=== PATIENT | male | born 1975 | race Caucasian/White ===

== ENCOUNTER 2021-01-20 06:39 | Emergency (ER) | payer BC, SELFPAY ==
[2021-01-20] MEDS ORDERED: ONDANSETRON 4 MG/2 ML VIAL ONE (07:54)
[2021-01-20] MEDS ORDERED: MORPHINE 4 MG/ML SYR ONE (07:54)
[2021-01-20] MEDS ORDERED: KETOROLAC 30 MG/ML INJ ONE (07:54)
[2021-01-20] MEDS ORDERED: NA CHLORIDE 0.9% 1,000 ML ONE (07:54)
[2021-01-20 08:09] LABS: Basophils % 0.9 % (0-1.3); Hematocrit 44.5 % (39.6-49.0); Lymphocytes % 28.7 % (15.3-44.8); RBC Red Blood Cell Count 4.72 M/uL (4.33-5.43)
[2021-01-20 08:14] LABS: Albumin 3.8 g/dL (3.4-5.0); Bilirubin Direct 0.2 mg/dL (0-0.2); Bilirubin Total 0.7 mg/dL (0.2-1.0); Potassium 3.8 mmol/L (3.5-5.1); Protein, Total 6.8 g/dL (6.4-8.2)
--- NOTE | 2021-01-20 08:19 | RAD REPORT ---
EXAM DESCRIPTION: CT - Stone Protocol - 01/20/2021 7:52 am CLINICAL HISTORY: Abdominal pain. COMPARISON: None. TECHNIQUE: Computed axial tomography of the abdomen pelvis was obtained without oral or IV contrast. Lack of IV and oral contrast limits evaluation of solid organs, bowel, and vessels. Coronal reformat juan images were obtained and reviewed. All CT scans are performed using dose optimization technique as appropriate and may include automated exposure control or mA/KV adjustment according to patient size. FINDINGS: Small bilateral renal calculi. No hydronephrosis. A ureteral calculus is not seen. No blad westley calculus. A 1 millimeter calculus within the bladder. The liver, spleen, pancreas and adrenals appear grossly normal There is no evidence of diverticulitis. Small to moderate left inguinal hernia. Small right inguinal hernia IMPRESSION: Small nonobstructing bilateral renal calculi
--- NOTE | 2021-01-20 08:37 | ER ---
Nurse's Notes [facility] Name: Paco Tolentino Age: 45 yrs Sex: Male : 1975 Arrival Date: 01/20/2021 Time: 06:40 Bed 13 Private MD: Diagnosis: Hydronephrosis with renal and ureteral calculous obstruction Presentation: 01/20 07:00 Chief complaint: Patient states: I got up around 6am to have a BM and started having jb4 sudden sharp pain to my right groin. It radiates to my back and is 10/10. Coronavirus screen: Client denies travel out of the [place] in the last 14 days. At this time, the client does not indicate any symptoms associated with coronavirus-19. Ebola Screen: Patient negative for fever greater than or equal to 101.5 degrees Fahrenheit, and additional compatible Ebola Virus Disease symptoms No symptoms or risks identified at this time. Initial Sepsis Screen: Does the patient meet any 2 criteria? No. Patient's initial sepsis screen is negative. Does the patient have a suspected source of infection? No. Patient's initial sepsis screen is negative. Risk Assessment: Do you want to hurt yourself or someone else? Patient reports no desire to harm self or others. Onset of symptoms was January 20, 2021. 07:00 Method Of Arrival: Wheelchair jb4 07:00 Acuity: OBI 2 jb4 Historical: - Allergies: 07:02 No Known Allergies; jb4 - Home Meds: 07:02 None [Active]; jb4 - PMHx: 07:02 None; jb4 - PSHx: 07:02 None; jb4 - Immunization history:: Adult Immunizations up to date. - Social history:: Smoking status: Patient denies any tobacco usage or history of. Patient/guardian denies using alcohol, street drugs. - Family history:: not pertinent. Screenin:22 Abuse screen: Denies threats or abuse. Denies injuries from another. Nutritional dm14 screening: No deficits noted. Tuberculosis screening: No symptoms or risk factors identified. Fall Risk None identified. Assessment: 07:07 Pain: Complains of pain in right femoral area Pain radiates to low back area, left low dm14 back and right low back Pain currently is 10 out of 10 on a pain scale. Quality of pain is described as sharp, stabbing, Pain began 1 hour ago. Is continuous. 08:05 Reassessment: Pt states pain is gone. Returned from CT. IV bolus infusing. dm14 08:11 Neuro: No deficits noted. Cardiovascular: No deficits noted. Respiratory: grunting dm14 resps with the pain, rapid. GI: Abd is soft and non tender X 4 quads. : No deficits noted. 09:30 General: Appears distressed, uncomfortable, slender, Behavior is cooperative, restless, dm14 Reports. 09:30 Reassessment: Pt remains pain free. Urine spec obtained and sent. dm14 Vital Signs: 07:00 BP 98 / 57; Pulse 51; Resp 16; Pulse Ox 100% on R/A; Weight 77.11 kg (R); Height 5 ft. jb4 6 in. (167.64 cm); Pain 10/10; 07:07 BP 97 / 78; Pulse 73; Pulse Ox 100% ; Pain 10/10; dm14 08:05 BP 86 / 59; Pulse 55; Resp 12; Temp 98; Pulse Ox 100% ; dm14 09:30 BP 96 / 63; Pulse 77; Resp 16; Pulse Ox 100% ; Pain 0/10; dm14 07:00 Body Mass Index 27.44 (77.11 kg, 167.64 cm) jb4 ED Course: 06:40 Patient arrived in ED. cl3 07:02 Triage completed. jb4 07:02 Arm band placed on right wrist. jb4 07:17 Nicki Khoury, BENJAMIN is Primary Nurse. ss 07:25 Hemant Grigsby MD is Attending Physician. chelo 07:33 Inserted saline lock: 22 gauge in left antecubital area, using aseptic technique. Blood ss collected. 07:52 CT Stone Protocol In Process Unspecified. EDMS 08:22 Patient has correct armband on for positive identification. Bed in low position. Call dm14 light in reach. Side rails up X2. 08:22 No provider procedures requiring assistance completed. Inserted saline lock: in left. dm14 08:36 Herman Saxena MD is Referral Physician. chelo 09:30 IV discontinued, intact, bleeding controlled, No redness/swelling at site. Pressure dm14 dressing applied. 09:47 Urine Dipstick--Ancillary (enter results) Sent. dm14 09:47 Urine Culture Sent. dm14 Administered Medications: 07:40 Drug: Zofran (Ondansetron) 4 mg Route: IVP; Site: left antecubital; dm14 07:42 Drug: TORadol 30 mg Route: IVP; Site: left antecubital; dm14 07:45 Drug: morphine 4 mg Route: IVP; Site: left antecubital; dm14 07:55 Drug: NS 0.9% 1000 ml Route: IV; Rate: 1 bolus; Site: left antecubital; dm14 Outcome: 08:36 Discharge ordered by . [facility] 09:30 Discharged to home ambulatory. dm14 09:30 Condition: stable 09:30 Discharge instructions given to patient, Instructed on discharge instructions, follow up and referral plans. medication usage, Demonstrated understanding of instructions, follow-up care, medications, Prescriptions given X 4. 09:54 Patient left the ED. dm14 Addendum: 01/23/2021 15:41 Addendum: Culture Results: Positive urine culture. No further action required. Bacteria s s sensitive to prescribed antibiotic. Signatures: Dispatcher [employer] EDMS Hemant Grigsby MD MD cha Smirch, Shelby, BENJAMIN ALEXANDER ss Sandeep Garrett RN RN ward4 Huan Rico3 Tami Phillips RN RN dm14 Corrections: (The following items were deleted from the chart) 01/20 08:17 08:11 Pain: Complains of pain in right femoral area Pain radiates to low back area, dm14 left low back and right low back Pain currently is 10 out of 10 on a pain scale. Quality of pain is described as sharp, stabbing, Pain began 1 hour ago. Is continuous, dm14 09:50 08:11 General: Appears distressed, uncomfortable, slender, Behavior is cooperative, dm14 restless, Reports dm14
--- NOTE | 2021-01-20 08:37 | EDPHYS ---
Physician Documentation [facility] Name: Paco Tolentino Age: 45 yrs Sex: Male : 1975 Arrival Date: 01/20/2021 Time: 06:40 Bed 13 Private MD: ANETA Physician Hemant Grigsby HPI: 01/20 08:08 This 45 yrs old Male presents to ER via Wheelchair with complaints of Pain chelo With Urination. 08:08 This 45 yrs old Male presents to ER via Wheelchair with complaints of Pain chelo With Urination. 08:08 The patient presents with abdominal pain right lower quadrant. Onset: The chelo symptoms/episode began/occurred just prior to arrival. The patient complains of pain in the right mid back and right low back. The pain radiates to the right mid back and right low back. Onset: The symptoms/episode began/occurred just prior to arrival. Modifying factors: The symptoms are alleviated by nothing. the symptoms are aggravated by nothing. Associated signs and symptoms: The patient has no apparent associated signs or symptoms. The symptoms do not radiate. Modifying factors: The symptoms are alleviated by nothing, the symptoms are aggravated by nothing. Historical: - Allergies: 07:02 No Known Allergies; jb4 - Home Meds: 07:02 None [Active]; jb4 - PMHx: 07:02 None; jb4 - PSHx: 07:02 None; jb4 - Immunization history:: Adult Immunizations up to date. - Social history:: Smoking status: Patient denies any tobacco usage or history of. Patient/guardian denies using alcohol, street drugs. - Family history:: not pertinent. ROS: 08:08 Constitutional: Negative for fever, chills, and weight loss, Eyes: Negative for injury, chelo pain, redness, and discharge, ENT: Negative for injury, pain, and discharge, Neck: Negative for injury, pain, and swelling, Cardiovascular: Negative for chest pain, palpitations, and edema, Respiratory: Negative for shortness of breath, cough, wheezing, and pleuritic chest pain, Back: Negative for injury and pain, : Negative for injury, bleeding, discharge, and swelling, MS/Extremity: Negative for injury and deformity, Skin: Negative for injury, rash, and discoloration, Neuro: Negative for headache, weakness, numbness, tingling, and seizure, Psych: Negative for depression, anxiety, suicide ideation, homicidal ideation, and hallucinations, Allergy/Immunology: Negative for hives, rash, and allergies, Endocrine: Negative for neck swelling, polydipsia, polyuria, polyphagia, and marked weight changes, Hematologic/Lymphatic: Negative for swollen nodes, abnormal bleeding, and unusual bruising. 08:08 Abdomen/GI: Positive for abdominal pain, of the anterior aspect of right lateral abdomen, posterior aspect of right lateral abdomen and right lower quadrant. Exam: 08:08 Constitutional: This is a well developed, well nourished patient who is awake, alert, chelo and in no acute distress. Head/Face: Normocephalic, atraumatic. Eyes: Pupils equal round and reactive to light, extra-ocular motions intact. Lids and lashes normal. Conjunctiva and sclera are non-icteric and not injected. Cornea within normal limits. Periorbital areas with no swelling, redness, or edema. ENT: Nares patent. No nasal discharge, no septal abnormalities noted. Tympanic membranes are normal and external auditory canals are clear. Oropharynx with no redness, swelling, or masses, exudates, or evidence of obstruction, uvula midline. Mucous membranes moist. Neck: Trachea midline, no thyromegaly or masses palpated, and no cervical lymphadenopathy. Supple, full range of motion without nuchal rigidity, or vertebral point tenderness. No Meningismus. Chest/axilla: Normal chest wall appearance and motion. Nontender with no deformity. No lesions are appreciated. Cardiovascular: Regular rate and rhythm with a normal S1 and S2. No gallops, murmurs, or rubs. Normal PMI, no JVD. No pulse deficits. Respiratory: Lungs have equal breath sounds bilaterally, clear to auscultation and percussion. No rales, rhonchi or wheezes noted. No increased work of breathing, no retractions or nasal flaring. Male : Normal genitalia with no discharge or lesions. Skin: Warm, dry with normal turgor. Normal color with no rashes, no lesions, and no evidence of cellulitis. MS/ Extremity: Pulses equal, no cyanosis. Neurovascular intact. Full, normal range of motion. Neuro: Awake and alert, GCS 15, oriented to person, place, time, and situation. Cranial nerves II-XII grossly intact. Motor strength 5/5 in all extremities. Sensory grossly intact. Cerebellar exam normal. Normal gait. Psych: Awake, alert, with orientation to person, place and time. Behavior, mood, and affect are within normal limits. 08:08 Abdomen/GI: Inspection: abdomen appears normal, Bowel sounds: normal, Palpation: mild abdominal tenderness, in the right lower quadrant, Liver: no appreciated palpable abnormalities, Hernia: not appreciated. Vital Signs: 07:00 BP 98 / 57; Pulse 51; Resp 16; Pulse Ox 100% on R/A; Weight 77.11 kg (R); Height 5 ft. jb4 6 in. (167.64 cm); Pain 10/10; 07:07 BP 97 / 78; Pulse 73; Pulse Ox 100% ; Pain 10/10; dm14 08:05 BP 86 / 59; Pulse 55; Resp 12; Temp 98; Pulse Ox 100% ; dm14 09:30 BP 96 / 63; Pulse 77; Resp 16; Pulse Ox 100% ; Pain 0/10; dm14 07:00 Body Mass Index 27.44 (77.11 kg, 167.64 cm) jb4 MDM: 07:25 Patient medically screened. [facility] 08:12 Differential diagnosis: nephrolithiasis, bowel obstruction, Cholelithiasis, chelo diverticulitis, non-specific abd pain, pancreatitis, urinary tract infection. Data reviewed: vital signs, nurses notes, lab test result(s), radiologic studies, CT scan. Data interpreted: addiction specialist: rate is 51 beats/min, rhythm is Pulse oximetry: is not applicable for this patient encounter. Counseling: I had a detailed discussion with the patient and/or guardian regarding: the historical points, exam findings, and any diagnostic results supporting the discharge/admit diagnosis, lab results, radiology results. 01/20 07:11 Order name: Basic Metabolic Panel; Complete Time: 08:36 01/20 07:11 Order name: CBC with Diff; Complete Time: 08:36 01/20 07:11 Order name: Hepatic Function; Complete Time: 08:36 ss 01/20 07:11 Order name: Lipase; Complete Time: 08:36 ss 01/20 07:28 Order name: Urine Culture chelo 01/20 09:43 Order name: Urine Dipstick--Ancillary (enter results) bd 01/20 07:11 Order name: IV Saline Lock; Complete Time: 07:38 01/20 07:11 Order name: Labs collected and sent; Complete Time: 07:38 01/20 07:27 Order name: CT Stone Protocol; Complete Time: 08:36 [facility] 01/20 09:44 Order name: Urine Dipstick-Ancillary [facility] 01/20 07:28 Order name: Urine Dipstick-Ancillary (obtain specimen); Complete Time: 09:46 [facility] Administered Medications: 07:40 Drug: Zofran (Ondansetron) 4 mg Route: IVP; Site: left antecubital; dm14 07:42 Drug: TORadol 30 mg Route: IVP; Site: left antecubital; dm14 07:45 Drug: morphine 4 mg Route: IVP; Site: left antecubital; dm14 07:55 Drug: NS 0.9% 1000 ml Route: IV; Rate: 1 bolus; Site: left antecubital; dm14 Disposition: 01/20/21 08:36 Discharged to Home. Impression: Hydronephrosis with renal and ureteral calculous obstruction. - Condition is Stable. - Discharge Instructions: Kidney Stones, Kidney Stones, [id number], Hydronephrosis. - Prescriptions for Tylenol- Codeine #3 300-30 mg Oral Tablet - take 2 tablets by ORAL route every 6 hours As needed; 15 tablet. Zofran 4 mg Oral Tablet - take 1 tablet by ORAL route every 12 hours As needed; 20 tablet. Flomax 0.4 mg Oral Capsule, Sust. Release 24 hr - take 1 capsule by ORAL route once daily 1/2 hour following the same meal each day; 30 capsule. Cipro 500 mg Oral Tablet - take 1 tablet by ORAL route every 12 hours for 7 days; 14 tablet. - Medication Reconciliation Form, Thank You Letter, Antibiotic Education, Prescription Opioid Use form. - Follow up: Private Physician; When: 2 - 3 days; Reason: Recheck today's complaints, Continuance of care, Re-evaluation by your physician. Follow up: Herman Saxena; When: 2 - 3 days; Reason: Recheck today's complaints, Re-evaluation by your physician. - Problem is new. - Symptoms have improved. Signatures: Dispatcher [employer] EDNE Hemant Grigsby MD MD cha Smirch, Shelby, RN RN Sandeep Cavanaugh RN RN jb4 Tami Phillips RN RN dm14 Corrections: (The following items were deleted from the chart) 09:54 08:36 01/20/2021 08:36 Discharged to Home. Impression: Hydronephrosis with renal and dm14 ureteral calculous obstruction. Condition is Stable. Discharge Instructions: Kidney Stones, Kidney Stones, [id number], Hydronephrosis. Prescriptions for Tylenol-Codeine #3 300-30 mg Oral Tablet - take 2 tablets by ORAL route every 6 hours As needed; 20 tablet, Zofran 4 mg Oral Tablet - take 1 tablet by ORAL route every 12 hours As needed; 20 tablet, Flomax 0.4 mg Oral Capsule, Sust. Release 24 hr - take 1 capsule by ORAL route once daily 1/2 hour following the same meal each day; 30 capsule, Cipro 500 mg Oral Tablet - take 1 tablet by ORAL route every 12 hours for 7 days; 14 tablet. and Forms are Medication Reconciliation Form, Thank You Letter, Antibiotic Education, Prescription Opioid Use. Follow up: Private Physician; When: 2 - 3 days; Reason: Recheck today's complaints, Continuance of care, Re-evaluation by your physician. Follow up: Herman Saxena; When: 2 - 3 days; Reason: Recheck today's complaints, Re-evaluation by your physician. Problem is new. Symptoms have improved. chelo
[2021-01-20 09:56] LABS: Urine Blood 2+ (NEG); Urine Glucose NEGATIVE (NEG); Urine Protein 1+ (NEG); Urine pH 8.5 (5.0-7.0)
[2021-01-20 11:04] VITALS: BP 98/57; O2SAT 100
== END 2021-01-20 09:54 | disposition home or self-care (01) ==
LOC: ER 06:39
DX: N13.2 Hydronephrosis with renal and ureteral calculous obstruction (principal)
CPT/HCPCS: 87088; 85025; 87086; 80048; 36415; 80076; 81003; 83690; 76377; 74176; J7030; J2405; 87077; 87186; 96374; 96375; 99284

== ENCOUNTER 2022-10-28 15:10 | Emergency (ER) | payer BC ==
[2022-10-28] MEDS ORDERED: NA CHLORIDE 0.9% 1,000 ML ONE (16:01)
[2022-10-28] MEDS ORDERED: ONDANSETRON 4 MG/2 ML VIAL ONE (16:01)
[2022-10-28] MEDS ORDERED: MORPHINE 4 MG/ML SYR ONE (16:01)
[2022-10-28 16:03] LABS: Urine Blood Trace-lysed (Negative); Urine Glucose Negative (Negative); Urine Protein Negative (Negative); Urine Specific Gravity <=1.005 (1.005-1.030); Urine pH 5.5 (5.0-7.0)
[2022-10-28 16:13] LABS: Urine Bacteria <20 /HPF (<20); Urine Mucus Slight /HPF (None Seen); Urine RBC <5 /HPF (None Seen)
[2022-10-28 16:20] LABS: Absolute Lymphocytes (CBC) 1.3 K/uL (0.7-4.9); Hematocrit 45.6 % (39.6-49.0); Lymphocytes % 22.2 % (15.3-44.8); MCV 93.8 fL (80-100); MPV 7.4 fL (7.6-11.3); RBC Red Blood Cell Count 4.86 M/uL (4.33-5.43)
--- NOTE | 2022-10-28 16:21 | RAD REPORT ---
EXAM DESCRIPTION: CT - Stone Protocol - 10/28/2022 4:09 pm CLINICAL HISTORY: Flank pain. Right flank pain COMPARISON: Stone Protocol dated 01/20/2021 TECHNIQUE: Axial images were obtained without oral or IV contrast. Lack of contrast limits solid org an and vascular assessment. The [id number] spans the entirety of the system partially obscuring uppermost abdomen and lung bases. Coronal reformatted images were obtained and reviewed. All CT scans are performed using dose optimization technique as appropriate and may include automated exposure control or mA/KV adjustment according to patient size. FINDINGS: The lower lung miranda are clear. Imaged portions of the liver and spleen show no suspicious findings on non-contrast imaging. The panc reas and adrenal glands are normal. No pathologic lymphadenopathy in the abdomen or pelvis. There is a 3 mm stone distal right ureter just proximal to the right UVJ resulting in mild right hydr onephrosis. Small stone is seen inferior left kidney. No bowel obstruction, free air, free fluid or abscess. Normal appendix noted.Bilateral fat containing inguinal hernias, larger on the left. No significant bony abnormality. IMPRESSION: 3 mm stone distal right ureter with mild right hydronephrosis. Punctate left renal calculus.
[2022-10-28 16:26] LABS: Albumin 4.2 g/dL (3.4-5.0); Bilirubin Total 1.1 mg/dL (0.2-1.0); Potassium 3.5 mmol/L (3.5-5.1)
[2022-10-28] MEDS ORDERED: KETOROLAC 30 MG/ML INJ ONE (16:45)
--- NOTE | 2022-10-28 17:40 | EDPHYS ---
Physician Documentation [facility] Name: Paco Tolentino Age: 46 yrs Sex: Male : 1975 Arrival Date: 10/28/2022 Time: 15:12 Bed IW5 Private MD: ED Physician Hemant Grigsby HPI: 10/28 15:48 This 46 yrs old Male presents to ER via Ambulatory with complaints of Possible Kidney pm1 Stone. 15:48 The patient complains of pain in the right low back. The pain radiates to the right pm1 groin. Onset: The symptoms/episode began/occurred 1 week(s) ago. Modifying factors: The symptoms are alleviated by OTC meds, Tylenol and ETOH. Associated signs and symptoms: Pertinent positives: Fever 3 days ago that has resolved, Pertinent negatives: diarrhea, dysuria, urinary frequency, nausea, vomiting. Severity of pain: in the emergency department the pain is unchanged. The patient has experienced similar episodes in the past, a few times. The patient has been recently seen by a physician: with similar presenting complaints, [place] cruise [place] advised to take tylenol. Patient with right sided flank pain onset 1 week ago that felt like his prior kidney stone. Patient was on a cruise ship and the only treatment that he could receive was Tylenol. Patient reports one day of fever that has resolved 3 days ago. Historical: - Home Meds: 15:43 None [Active]; ld1 - PMHx: 15:43 None; ld1 - PSHx: 15:43 None; ld1 - Immunization history:: Adult Immunizations up to date, Client reports receiving the 2nd dose of the Covid vaccine. - Social history:: Smoking status: Patient denies any tobacco usage or history of. Patient uses alcohol, occasionally. ROS: 15:51 Constitutional: Negative for fever, chills, and weight loss, Cardiovascular: Negative pm1 for chest pain, palpitations, and edema, Respiratory: Negative for shortness of breath, cough, wheezing, and pleuritic chest pain, Abdomen/GI: Negative for abdominal pain, nausea, vomiting, diarrhea, and constipation. 15:51 : Negative for injury, bleeding, discharge, and swelling, MS/Extremity: Negative for injury and deformity, Skin: Negative for injury, rash, and discoloration, Neuro: Negative for headache, weakness, numbness, tingling, and seizure. 15:51 Back: Positive for flank pain, on the right. 15:51 All other systems are negative. Exam: 15:51 Constitutional: This is a well developed, well nourished patient who is awake, alert, pm1 and in no acute distress. Head/Face: Normocephalic, atraumatic. 15:51 Skin: Warm, dry with normal turgor. Normal color with no rashes, no lesions, and no evidence of cellulitis. MS/ Extremity: Pulses equal, no cyanosis. Neurovascular intact. Full, normal range of motion. 15:51 Eyes: Exam is negative for acute changes, Periorbital structures: no acute changes, Extraocular movements: no acute changes, Conjunctiva: no acute changes, no injection. 15:51 ENT: Exam is negative for acute changes, Mouth: no acute changes, Lips: normal, moist, Oral mucosa: normal, pink and intact, moist. 15:51 Cardiovascular: Exam negative for acute changes, Rate: normal, Rhythm: regular, Pulses: no pulse deficits are appreciated. 15:51 Respiratory: Exam negative for acute changes, respiratory distress, shortness of breath. 15:51 Abdomen/GI: Exam negative for acute changes, Inspection: abdomen appears normal, Palpation: abdomen is soft and non-tender, in all quadrants. 15:51 Back: Exam negative for acute changes, CVA tenderness, that is mild, is noted on the right, vertebral tenderness, is not appreciated. 15:51 Neuro: Exam negative for acute changes, Orientation: is normal, Mentation: is normal, Motor: is normal, moves all fours. Vital Signs: 15:42 BP 135 / 91; Pulse 72; Resp 18; Temp 98.7(TE); Pulse Ox 99% on R/A; Weight 63.5 kg; ld1 Height 5 ft. 6 in. (167.64 cm); Pain 8/10; 17:45 BP 129 / 77; Pulse 71; Resp 18; Pulse Ox 100% on R/A; Pain 2/10; ld1 15:42 Body Mass Index 22.60 (63.50 kg, 167.64 cm) ld1 MDM: 15:48 Patient medically screened. pm1 16:17 Data reviewed: vital signs. Data interpreted: Pulse oximetry: on room air is 99 %. pm1 Interpretation: normal. 17:37 Counseling: I had a detailed discussion with the patient and/or guardian regarding: the pm1 historical points, exam findings, and any diagnostic results supporting the discharge/admit diagnosis, the need for outpatient follow up, to return to the emergency department if symptoms worsen or persist or if there are any questions or concerns that arise at home. 10/28 15:47 Order name: CBC with Diff; Complete Time: 16:27 pm1 10/28 15:47 Order name: CMP; Complete Time: 16:27 pm1 10/28 15:47 Order name: Lipase; Complete Time: 16:27 pm1 10/28 15:47 Order name: CT Stone Protocol; Complete Time: 16:43 pm1 10/28 15:47 Order name: Urine Microscopic Only; Complete Time: 16:15 pm1 10/28 16:04 Order name: Urine Dipstick-Ancillary; Complete Time: 16:09 EDMS 10/28 15:47 Order name: IV Saline Lock; Complete Time: 15:58 pm1 10/28 15:47 Order name: Labs collected and sent; Complete Time: 15:58 pm1 10/28 15:47 Order name: Urine Dipstick-Ancillary (obtain specimen); Complete Time: 15:58 pm1 Administered Medications: 16:03 Drug: NS 0.9% 1000 ml Route: IV; Rate: 1 bolus; Site: left antecubital; ld1 16:03 Drug: Zofran (Ondansetron) 4 mg Route: IVP; Site: left antecubital; ld1 17:47 Follow up: Response: No adverse reaction ld1 16:03 Drug: morphine 4 mg Route: IVP; Infused Over: 4 mins; Site: left antecubital; ld1 17:47 Follow up: Response: No adverse reaction ld1 16:46 Drug: Ketorolac 30 mg Route: IVP; Site: left antecubital; ld1 17:47 Follow up: Response: No adverse reaction ld1 17:45 Drug: Flomax (tamsulosin) 0.4 mg Route: PO; ld1 17:47 Follow up: Response: No adverse reaction ld1 Disposition Summary: 10/28/22 17:39 Discharge Ordered Location: Home pm1 Problem: new pm1 Symptoms: have improved pm1 Condition: Stable pm1 Diagnosis - Calculus of ureter pm1 Followup: pm1 - With: Emergency Department - When: As needed - Reason: Worsening of condition Followup: pm1 - With: Herman Saxena MD - When: 2 - 3 days - Reason: Recheck today's complaints, Continuance of care, Re-evaluation by your physician Discharge Instructions: - Discharge Summary Sheet pm1 - Kidney Stones pm1 - Dietary Guidelines to Help Prevent Kidney Stones pm1 Forms: - Medication Reconciliation Form pm1 - Thank You Letter pm1 - Antibiotic Education pm1 - Prescription Opioid Use pm1 Prescriptions: - Flomax 0.4 mg Oral capsule - take 1 capsule by ORAL route once daily for 5 days 1/2 hour following the same pm1 meal each day; 5 capsule; Refills: 0, Product Selection Permitted - Tylenol-Codeine #3 300 mg-30 mg Oral - take 2 tablet by ORAL route every 6 hours As needed; 20 tablet; Refills: 0, pm1 Product Selection Permitted Addendum: 10/31/2022 08:00 Co-signature as Attending Physician, Hemant Grigsby MD I agree with the assessment and c eng plan of care. Signatures: Dispatcher [employer] EDHemant Lane MD MD cha Marinas, Patrick, ADVISER SALES ADVISER SALES pm1 Kathleen Resendiz, RN RN ld1
--- NOTE | 2022-10-28 17:40 | ER ---
Nurse's Notes [facility] Name: Paco Tolentino Age: 46 yrs Sex: Male : 1975 Arrival Date: 10/28/2022 Time: 15:12 Bed IW5 Private MD: Diagnosis: Calculus of ureter Presentation: 10/28 15:42 Chief complaint: Patient states: Right flank pain X 1 week. Today it has gotten much ld1 worse. Coronavirus screen: At this time, the client does not indicate any symptoms associated with coronavirus-19. Ebola Screen: No symptoms or risks identified at this time. Initial Sepsis Screen: Does the patient meet any 2 criteria? No. Patient's initial sepsis screen is negative. Does the patient have a suspected source of infection? No. Patient's initial sepsis screen is negative. Risk Assessment: Do you want to hurt yourself or someone else? Patient reports no desire to harm self or others. Onset of symptoms was October 28, 2022. 15:42 Method Of Arrival: Ambulatory ld1 15:42 Acuity: OBI 3 ld1 Triage Assessment: 15:43 General: Appears in no apparent distress. uncomfortable, Behavior is calm, cooperative, ld1 appropriate for age. Pain: Complains of pain in right low back Pain does not radiate. Pain currently is 8 out of 10 on a pain scale. Quality of pain is described as sharp, shooting, throbbing, Pain began Is continuous. EENT: No signs and/or symptoms were reported regarding the EENT system. Neuro: Level of Consciousness is awake, alert, obeys commands, Oriented to person, place, time, situation. Cardiovascular: Capillary refill < 3 seconds Patient's skin is warm and dry. Respiratory: Airway is patent Respiratory effort is even, unlabored. GI: Abdomen is flat, non-distended. : Reports pain in right flank(s). Derm: No signs and/or symptoms reported regarding the dermatologic system. Musculoskeletal: No signs and/or symptoms reported regarding the musculoskeletal system. Historical: - Home Meds: 15:43 None [Active]; ld1 - PMHx: 15:43 None; ld1 - PSHx: 15:43 None; ld1 - Immunization history:: Adult Immunizations up to date, Client reports receiving the 2nd dose of the Covid vaccine. - Social history:: Smoking status: Patient denies any tobacco usage or history of. Patient uses alcohol, occasionally. Screenin:45 Abuse screen: Denies threats or abuse. Denies injuries from another. Nutritional ld1 screening: No deficits noted. Tuberculosis screening: No symptoms or risk factors identified. Fall Risk None identified. Assessment: 17:45 Reassessment: See triage assessment, ERP in triage discussing results with patient. Pt ld1 reporting pain is decreased. Vital Signs: 15:42 BP 135 / 91; Pulse 72; Resp 18; Temp 98.7(TE); Pulse Ox 99% on R/A; Weight 63.5 kg; ld1 Height 5 ft. 6 in. (167.64 cm); Pain 8/10; 17:45 BP 129 / 77; Pulse 71; Resp 18; Pulse Ox 100% on R/A; Pain 2/10; ld1 15:42 Body Mass Index 22.60 (63.50 kg, 167.64 cm) ld1 ED Course: 15:12 Patient arrived in ED. as 15:43 Triage completed. ld1 15:43 Arm band placed on right wrist. ld1 15:44 Abilio Sierra NP is PHCP. pm1 15:44 Hemant Grigsby MD is Attending Physician. pm1 15:58 Inserted saline lock: 20 gauge in left antecubital area, using aseptic technique. Blood iw collected. 16:11 CT Stone Protocol In Process Unspecified. EDMS 17:38 Herman Saxena MD is Referral Physician. pm1 17:45 Patient has correct armband on for positive identification. Pulse ox on. NIBP on. Door ld1 closed. Noise minimized. 17:45 No provider procedures requiring assistance completed. IV discontinued, intact, ld1 bleeding controlled, No redness/swelling at site. Administered Medications: 16:03 Drug: NS 0.9% 1000 ml Route: IV; Rate: 1 bolus; Site: left antecubital; ld1 16:03 Drug: Zofran (Ondansetron) 4 mg Route: IVP; Site: left antecubital; ld1 17:47 Follow up: Response: No adverse reaction ld1 16:03 Drug: morphine 4 mg Route: IVP; Infused Over: 4 mins; Site: left antecubital; ld1 17:47 Follow up: Response: No adverse reaction ld1 16:46 Drug: Ketorolac 30 mg Route: IVP; Site: left antecubital; ld1 17:47 Follow up: Response: No adverse reaction ld1 17:45 Drug: Flomax (tamsulosin) 0.4 mg Route: PO; ld1 17:47 Follow up: Response: No adverse reaction ld1 Medication: 17:45 VIS not applicable for this client. ld1 Outcome: 17:39 Discharge ordered by MD. pm1 17:45 Discharged to home ambulatory. ld1 17:45 Condition: stable 17:45 Discharge instructions given to patient, Instructed on discharge instructions, follow up and referral plans. medication usage, Demonstrated understanding of instructions, follow-up care, medications, Prescriptions given X 2. 17:47 Patient left the ED. ld1 Signatures: Dispatcher [employer] Yari Bosch Irene, RN RN iw Abilio Sierra, [employer] pm1 Kathleen Resendiz RN RN ld1
[2022-10-28] MEDS ORDERED: TAMSULOSIN 0.4 MG SR CAP ONE (17:43)
[2022-10-28 18:06] VITALS: TEMP 98.7
[2022-10-28 18:07] VITALS: BP 129/77; O2SAT 100
== END 2022-10-28 17:47 | disposition home or self-care (01) ==
LOC: ER 15:10 → SUPCPDRO 15:10 → ER 17:47
DX: N20.1 Calculus of ureter (principal)
CPT/HCPCS: 85025; 36415; 83690; 80053; 76377; 74176; 96375; 96374; 99284; J7030; J2405; 81003; 81015

== ENCOUNTER 2022-11-11 11:55 | Emergency (ER) | payer BC ==
--- OUTSIDE RECORDS SUMMARY | 2022-11-11 11:59 | XMS REPORT | Continuity of Care Document ---
:1975 Author Organization [facility] t Address [address] [place] [address] Care Team Providers Name Role Phone [place] Attending Clinician Unavailable [facility] Admitting Clinician Unavailable Payers Payer Name Policy Type Policy Number Effective Date Expiration Date S rajni [employer] 6 [id number] 2022 Common Spiri t [employer] of 00:00:00 [facility] Problems Condition Condition Condition Status Onset Resolution Last Treating Co mments Source Name Details Category Date Date Treatment Clinician Date [id number] Recurrent Problem Co mmon [id number] nephrolith [facility] iasis [facility] [id number] [facility] [id number] Calculus Problem Comm on of distal [facility] right [facility] ureter [facility] [id number] Renal Problem Common calculus, [facility] left [facility] Allergies, Adverse Reactions, Alerts This patient has no known allergies or adverse reactions. Social History Social Habit Start Date Stop Date Quantity Comments Source History of Tobacco Use Co mmon [facility] Sex Assigned At Com mon [facility] Smoking Status Start Date Stop Date Source Never Smoker Common [facility] Medications Ordered Filled Start Stop Current Ordering Indication Dosage Frequency Signature Comments Components Source Medication Medication Date Date Medication? Clinician (SIG) Name Name No Known No Known No Common Medications [facility] Immunizations Ordered Immunization Filled Immunization Date Status Commen ts Source Name Name Boostrix (Tdap) Boostrix (Tdap) 2022-11-02 Completed Comm on [facility] 16:52:00 - [facility] Boostrix (Tdap) Boostrix (Tdap) 2022-11-02 Completed Comm on [facility] 16:52:00 [facility] Vital Signs Vital Name Observation Time Observation Value Comments Source height 2022-11-03 14:30:00 67 [in_i] [facility] weight 2022-11-03 14:30:00 146.6 [lb_av] [facility] temperature 2022-11-03 14:30:00 98.3 [degF] [facility] bmi 2022-11-03 14:30:00 22.96 kg/m2 [facility] oximetry 2022-11-03 14:30:00 99 % [facility] respiratory rate 2022-11-03 14:30:00 18 /min Comm on [facility] blood pressure 2022-11-03 14:30:00 131 mm[Hg] [facility] systolic [facility] blood pressure 2022-11-03 14:30:00 72 mm[Hg] [facility] diastolic [facility] height 2022-11-02 16:20:00 67 [in_i] [facility] weight 2022-11-02 16:20:00 145.3 [lb_av] [facility] temperature 2022-11-02 16:20:00 97.8 [degF] [facility] bmi 2022-11-02 16:20:00 22.75 kg/m2 [facility] oximetry 2022-11-02 16:20:00 98 % [facility] respiratory rate 2022-11-02 16:20:00 18 /min Comm on [facility] blood pressure 2022-11-02 16:20:00 110 mm[Hg] Common [facility] - systolic [facility] blood pressure 2022-11-02 16:20:00 61 mm[Hg] Common [facility] - diastolic [facility] Procedures This patient has no known procedures. Encounters Start End Encounter Admission Attending Care Care Encounter Source Date/Time Date/Time Type Type Clinicians Facility Department ID 2022-11-04 [facility] [id number] Common 13:15:02 [facility] [id number] [facility] 2022-11-02 [facility], [facility] [id number] Common 10:04:04 [facility] [id number] [facility] 2022-11-03 2022-11-03 [facility] [id number] Co mmon 00:00:00 00:00:00 VISIT NEW Spir it PT LEVEL 2 - [facility] 2022-11-02 2022-11-02 [facility]V [facility] [id number] Common 00:00:00 00:00:00 [facility] 40-64 - [facility] Results This patient has no known results.
[2022-11-11 12:37] LABS: Urine Blood Negative (Negative); Urine Glucose Negative (Negative); Urine Protein Negative (Negative); Urine Specific Gravity >=1.030 (1.005-1.030)
[2022-11-11 12:38] LABS: Absolute Lymphocytes (CBC) 1.1 K/uL (0.7-4.9); Hematocrit 45.8 % (39.6-49.0); Lymphocytes % 10.4 % (15.3-44.8); MCV 94.8 fL (80-100); MPV 7.8 fL (7.6-11.3); RBC Red Blood Cell Count 4.83 M/uL (4.33-5.43)
[2022-11-11] MEDS ORDERED: NA CHLORIDE 0.9% 1,000 ML ONE ×2 (12:38→14:59)
[2022-11-11] MEDS ORDERED: ONDANSETRON 4 MG/2 ML VIAL ONE ×2 (12:38→17:29)
[2022-11-11] MEDS ORDERED: MORPHINE 4 MG/ML SYR ONE (12:38)
--- NOTE | 2022-11-11 13:01 | RAD REPORT ---
EXAM DESCRIPTION: US - Renal Ultrasound-Complete - 11/11/2022 12:53 pm CLINICAL HISTORY: right flank pain COMPARISON: Stone Protocol dated 10/28/2022 FINDINGS: Both kidneys are normal in size, shape and echotexture. The right kidney measures 10.7 cm. No hydronephrosis, focal mass or perinephric fluid. The left kidney measures 11 cm. No hydronephrosis, focal mass or perinephric fluid. IMPRESSION: No evidence of hydronephrosis. Unremarkable renal ultrasound.
[2022-11-11 13:04] LABS: Albumin 4.4 g/dL (3.4-5.0); Bilirubin Total 0.9 mg/dL (0.2-1.0); Potassium 4.3 mmol/L (3.5-5.1); Protein, Total 7.4 g/dL (6.4-8.2)
[2022-11-11 13:05] LABS: Urine Bacteria <20 /HPF (<20); Urine Mucus Slight /HPF (None Seen); Urine Sperm Present (None Seen)
[2022-11-11] MEDS ORDERED: KETOROLAC 30 MG/ML INJ ONE ×2 (13:37→17:27)
--- NOTE | 2022-11-11 13:59 | RAD REPORT ---
EXAM DESCRIPTION: RAD - Abdomen 1 View (KUB) - 11/11/2022 1:43 pm CLINICAL HISTORY: right flank pain COMPARISON: Stone Protocol dated 10/28/2022 FINDINGS: Nonobstructive bowel gas pattern. No acute osseous abnormality.Visualized lungs are unrema rkable.Stone overlying the right distal ureter near the UVJ is again noted. IMPRESSION: Right distal ureteral stone in grossly similar positioning comparing across modalities w ith the recent CT.
[2022-11-11] MEDS ORDERED: TAMSULOSIN 0.4 MG SR CAP ONE (14:07)
[2022-11-11] MEDS ORDERED: HYDROMORPHONE HCL 1 MG/ML INJ ONE (14:15)
--- NOTE | 2022-11-11 16:34 | ER ---
Nurse's Notes [facility] Name: Paco Tolentino Age: 46 yrs Sex: Male : 1975 Arrival Date: 11/11/2022 Time: 11:56 Bed 12 Private MD: Herman Saxena Diagnosis: Calculus of ureter-Right;Intractable Pain Presentation: 11/11 12:22 Chief complaint: Patient states: Pt c/o RLQ and R flank pain 09/06. 2 kidney stones ap3 verified two weeks ago in ER. Pt has ultrasound scheduled for 11/19/[address] Saxena. Pt reports pain has become much worse \T\ Tylenol 3 is not touching the pain. Coronavirus screen: At this time, the client does not indicate any symptoms associated with coronavirus-19. Ebola Screen: No symptoms or risks identified at this time. Initial Sepsis Screen: Does the patient meet any 2 criteria? No. Patient's initial sepsis screen is negative. Does the patient have a suspected source of infection? No. Patient's initial sepsis screen is negative. Risk Assessment: Do you want to hurt yourself or someone else? Patient reports no desire to harm self or others. Onset of symptoms was November 11, 2022. 12:22 Method Of Arrival: Ambulatory ap3 12:22 Acuity: OBI 3 ap3 Triage Assessment: 12:22 General: Appears in no apparent distress. comfortable, Behavior is calm, cooperative, ap3 appropriate for age. Pain: Complains of pain in right low back and right lower quadrant Pain does not radiate. Pain currently is 10 out of 10 on a pain scale. Quality of pain is described as throbbing. EENT: No signs and/or symptoms were reported regarding the EENT system. Neuro: Level of Consciousness is awake, alert, obeys commands, Oriented to person, place, time, situation. Cardiovascular: Capillary refill < 3 seconds Patient's skin is warm and dry. Respiratory: Airway is patent Respiratory effort is even, unlabored. GI: Abdomen is flat, non-distended. : Reports pain in right flank(s). Derm: No signs and/or symptoms reported regarding the dermatologic system. Musculoskeletal: No signs and/or symptoms reported regarding the musculoskeletal system. Historical: - Allergies: 12: Aspirin; ap3 - PMHx: 12:22 None; ap3 - PSHx: 12:22 None; ap3 - Immunization history:: Adult Immunizations up to date, Client reports receiving the 2nd dose of the Covid vaccine. - Social history:: Smoking status: Patient denies any tobacco usage or history of. Patient/guardian denies using alcohol. Screenin:49 [facility] ED Fall Risk Assessment (Adult) History of falling in the last 3 months, ld1 including since admission No falls in past 3 months (0 pts). Humpty Dumpty Scale Fall Assessment Tool (age< 18yrs) Age 13 years and above (1 pt). Abuse screen: Denies threats or abuse. Denies injuries from another. Nutritional screening: No deficits noted. Tuberculosis screening: No symptoms or risk factors identified. Fall Risk No fall in past 12 months (0 pts). Assessment: 13:49 Reassessment: Patient appears in no apparent distress at this time. No changes from ld1 previously documented assessment. Patient and/or family updated on plan of care and expected duration. Pain level reassessed. Patient is alert, oriented x 3, equal unlabored respirations, skin warm/dry/pink. Pt c/o right flank pain. 14:57 Reassessment: Patient appears in no apparent distress at this time. Patient and/or ld1 family updated on plan of care and expected duration. Pain level reassessed. Patient is alert, oriented x 3, equal unlabored respirations, skin warm/dry/pink. Patient states feeling better. Patient states symptoms have improved. 16:18 Reassessment: Patient appears in no apparent distress at this time. Patient and/or ld1 family updated on plan of care and expected duration. Pain level reassessed. Patient is alert, oriented x 3, equal unlabored respirations, skin warm/dry/pink. Vital Signs: 12:22 BP 114 / 79; Pulse 67; Resp 18; Temp 98.5(O); Pulse Ox 100% on R/A; Weight 63.5 kg; ap3 Height 5 ft. 6 in. (167.64 cm); Pain 10/10; 13:49 BP 118 / 72; Pulse 69; Resp 18; Pulse Ox 100% on R/A; ld1 13:50 Pain 10/10; ld1 14:56 BP 116 / 70; Pulse 71; Resp 18; Pulse Ox 100% on R/A; Pain 3/10; ld1 16:18 BP 113 / 73; Pulse 69; Resp 18; Pulse Ox 100% on R/A; Pain 2/10; ld1 12:22 Body Mass Index 22.60 (63.50 kg, 167.64 cm) ap3 ED Course: 11:56 Patient arrived in ED. as 11:56 Herman Saxena MD is Private Physician. as 11:57 Hemant Cabrera PA is PHCP. cp 11:57 Kaycee Bay MD is Attending Physician. cp 11:57 Jo More FNP is PHCP. jh7 12:22 Arm band placed on right wrist. ap3 12:24 Triage completed. ap3 12:29 Beulah Prince, BENJAMIN is Primary Nurse. ap3 12:35 Urine Microscopic Only Sent. ld1 12:55 US Rp Exam Complete In Process Unspecified. EDMS 13:45 XRAY KUB In Process Unspecified. EDMS 13:49 Patient has correct armband on for positive identification. Placed in gown. Bed in low ld1 position. Call light in reach. Side rails up X2. potline monitor on. Pulse ox on. NIBP on. Door closed. Noise minimized. Warm blanket given. 13:49 No provider procedures requiring assistance completed. Inserted saline lock: 20 gauge ld1 in right antecubital area, using aseptic technique. Blood collected. 16:32 Herman Saxena MD is Hospitalizing Provider. cp 17:02 SARS RAPID Sent. ld1 17:33 Patient admitted, IV remains in place. ld1 Administered Medications: 12:41 Drug: morphine 4 mg Route: IVP; Infused Over: 4 mins; Site: right antecubital; ld1 14:18 Follow up: Response: No adverse reaction; Pain is unchanged, physician notified ld1 12:41 Drug: Zofran (Ondansetron) 4 mg Route: IVP; Site: right antecubital; ld1 14:18 Follow up: Response: No adverse reaction ld1 12:41 Drug: NS 0.9% 1000 ml Route: IV; Rate: 1 bolus; Site: right antecubital; ld1 14:18 Follow up: IV Status: Completed infusion; IV Intake: 1000ml ld1 13:39 Drug: Ketorolac 15 mg Route: IVP; Site: right antecubital; ld1 14:17 Follow up: Response: No adverse reaction; Pain is unchanged, physician notified ld1 14:11 Drug: Flomax (tamsulosin) 0.4 mg Route: PO; ld1 14:18 Follow up: Response: No adverse reaction ld1 14:17 Drug: Dilaudid (HYDROmorphone) 1 mg Route: IVP; Site: right antecubital; ld1 14:56 Follow up: Response: No adverse reaction; Pain is decreased ld1 15:07 Drug: NS 0.9% 1000 ml Route: IV; Rate: 125 ml/hr; Site: right antecubital; ld1 Medication: 13:49 VIS not applicable for this client. ld1 Intake: 14:18 IV: 1000ml; Total: 1000ml. ld1 Outcome: 16:33 Decision to Hospitalize by Provider. cp 17:33 Admitted to OR accompanied by nurse, via wheelchair. ld1 17:33 Condition: stable 17:33 Instructed on the need for admit. 17:33 Patient left the ED. ld1 Signatures: Dispatcher [employer] Yari Bosch Corey, PA PA cp Beulah Prince RN RN ap3 Kathleen Resendiz RN RN ld1 Jo More FNP FNP 7
--- NOTE | 2022-11-11 16:34 | EDPHYS ---
Physician Documentation [facility] Name: Paco Tolentino Age: 46 yrs Sex: Male : 1975 Arrival Date: 11/11/2022 Time: 11:56 Bed 12 Private MD: Herman Saxena ED Physician Kaycee Bay HPI: 11/11 12:30 This 46 yrs old Male presents to ER via Ambulatory with complaints of Flank Pain - cp kidney stone. 12:30 The patient complains of pain in the right flank. cp 12:30 The pain radiates to the abdomen. Onset: The symptoms/episode began/occurred 2 month(s) cp ago. Associated signs and symptoms: Pertinent negatives: fever, headache, pain radiating to the lower extremities, vomiting. The patient has been recently seen at the [facility] Emergency Department, a couple of weeks ago, for similar complaints labs were performed, CT scan was performed. 12:30 Patient reports at ED visit couple weeks ago was diagnosed with right side kidney stone cp and has had f/u with DR Saxena who ordered US scheduled for 11-19-2022. Historical: - Allergies: 12:22 Aspirin; ap3 - PMHx: 12:22 None; ap3 - PSHx: 12:22 None; ap3 - Immunization history:: Adult Immunizations up to date, Client reports receiving the 2nd dose of the Covid vaccine. - Social history:: Smoking status: Patient denies any tobacco usage or history of. Patient/guardian denies using alcohol. ROS: 12:35 Constitutional: Negative for body aches, chills, fever, poor PO intake. cp 12:35 Eyes: Negative for injury, pain, redness, and discharge. cp 12:35 ENT: Negative for drainage from ear(s), ear pain, sore throat, difficulty swallowing, difficulty handling secretions. 12:35 Cardiovascular: Negative for chest pain, palpitations. 12:35 Respiratory: Negative for cough, shortness of breath, wheezing. 12:35 Abdomen/GI: Negative for vomiting, diarrhea, constipation. 12:35 Back: Positive for flank pain, on the right, Negative for decreased range of motion, pain at rest, pain with movement. 12:35 : Negative for testicular pain 12:35 Neuro: Negative for altered mental status, headache, weakness. 12:35 All other systems are negative. Exam: 12:40 Constitutional: The patient appears in no acute distress, alert, awake, non-toxic, well cp developed, well nourished, uncomfortable. 12:40 Head/Face: Normocephalic, atraumatic. cp 12:40 Eyes: Periorbital structures: appear normal, Conjunctiva: normal, no exudate, no injection, Sclera: no appreciated abnormality, Lids and lashes: appear normal, bilaterally. 12:40 ENT: External ear(s): are unremarkable, Nose: is normal, Mouth: Lips: moist, Oral mucosa: pink and intact, moist, Posterior pharynx: Airway: no evidence of obstruction, patent, erythema, is not appreciated, peritonsillar mass, is not appreciated. 12:40 Chest/axilla: Inspection: normal. 12:40 Cardiovascular: Rate: normal, Rhythm: regular. 12:40 Respiratory: the patient does not display signs of respiratory distress, Respirations: normal, no use of accessory muscles, no retractions, labored breathing, is not present, Breath sounds: are clear throughout, no decreased breath sounds, no stridor, no wheezing. 12:40 Abdomen/GI: Inspection: abdomen appears normal, Bowel sounds: active, all quadrants, Palpation: soft, in all quadrants, moderate abdominal tenderness, in the anterior aspect of right lateral abdomen, posterior aspect of right lateral abdomen, right upper quadrant and right lower quadrant. 12:40 Back: CVA tenderness, is absent. 12:40 Skin: no rash present. Vital Signs: 12:22 BP 114 / 79; Pulse 67; Resp 18; Temp 98.5(O); Pulse Ox 100% on R/A; Weight 63.5 kg; ap3 Height 5 ft. 6 in. (167.64 cm); Pain 10/10; 13:49 BP 118 / 72; Pulse 69; Resp 18; Pulse Ox 100% on R/A; ld1 13:50 Pain 10/10; ld1 14:56 BP 116 / 70; Pulse 71; Resp 18; Pulse Ox 100% on R/A; Pain 3/10; ld1 16:18 BP 113 / 73; Pulse 69; Resp 18; Pulse Ox 100% on R/A; Pain 2/10; ld1 12:22 Body Mass Index 22.60 (63.50 kg, 167.64 cm) ap3 MDM: 11:57 Patient medically screened. 7 13:00 Differential diagnosis: nephrolithiasis, pyelonephritis, UTI, sepsis, infected kidney cp stone. 14:15 Data reviewed: vital signs, nurses notes, lab test result(s), radiologic studies, plain cp films, ultrasound. 14:15 Counseling: I had a detailed discussion with the patient and/or guardian regarding: the cp historical points, exam findings, and any diagnostic results supporting the discharge/admit diagnosis, lab results, radiology results. Response to treatment: the patient's symptoms have mildly improved after treatment. 16:30 Physician consultation: Herman Saxena MD was contacted at 16:30, regarding patient's cp condition, requests OR staff to be called for placement of ureter stent this evening. 11/11 12:26 Order name: CBC with Diff; Complete Time: 13:04 ap3 11/11 13:04 Interpretation: Normal except: KATHY% 79.2; LYM% 10.4; NEUT A 8.3. 11/11 12:26 Order name: CMP; Complete Time: 13:04 ap3 11/11 13:04 Interpretation: Normal except: GLUC 112; GFR 79; AST 44; ALT 83. 11/11 12:26 Order name: Lipase; Complete Time: 13:04 ap3 11/11 12:33 Order name: Urine Microscopic Only; Complete Time: 14:01 cp 11/11 14:02 Interpretation: Normal except: URBC 5-10; SPERM Present. 11/11 12:37 Order name: Urine Dipstick-Ancillary; Complete Time: 13:04 EDMS 11/11 16:45 Order name: SARS RAPID; Complete Time: 17:15 ld1 11/11 12:36 Order name: XRAY KUB; Complete Time: 14:01 11/11 12:36 Order name: US Rp Exam Complete; Complete Time: 13:04 11/11 12:26 Order name: IV Saline Lock; Complete Time: 12:29 ap3 11/11 12:26 Order name: Labs collected and sent; Complete Time: 12:26 ap3 11/11 12:26 Order name: Urine Dipstick-Ancillary (obtain specimen); Complete Time: 12:36 ap3 11/11 14:02 Order name: Urine Strainer; Complete Time: 14:11 cp 11/11 16:30 Order name: NPO; Complete Time: 16:44 cp Administered Medications: 12:41 Drug: morphine 4 mg Route: IVP; Infused Over: 4 mins; Site: right antecubital; ld1 14:18 Follow up: Response: No adverse reaction; Pain is unchanged, physician notified ld1 12:41 Drug: Zofran (Ondansetron) 4 mg Route: IVP; Site: right antecubital; ld1 14:18 Follow up: Response: No adverse reaction ld1 12:41 Drug: NS 0.9% 1000 ml Route: IV; Rate: 1 bolus; Site: right antecubital; ld1 14:18 Follow up: IV Status: Completed infusion; IV Intake: 1000ml ld1 13:39 Drug: Ketorolac 15 mg Route: IVP; Site: right antecubital; ld1 14:17 Follow up: Response: No adverse reaction; Pain is unchanged, physician notified ld1 14:11 Drug: Flomax (tamsulosin) 0.4 mg Route: PO; ld1 14:18 Follow up: Response: No adverse reaction ld1 14:17 Drug: Dilaudid (HYDROmorphone) 1 mg Route: IVP; Site: right antecubital; ld1 14:56 Follow up: Response: No adverse reaction; Pain is decreased ld1 15:07 Drug: NS 0.9% 1000 ml Route: IV; Rate: 125 ml/hr; Site: right antecubital; ld1 Disposition Summary: 11/11/22 16:33 Hospitalization Ordered Hospitalization Status: Observation cp Provider: Herman Saxena cp Location: Operating Room cp Condition: Stable cp Problem: an ongoing problem cp Symptoms: have improved cp Bed/Room Type: Standard cp Room Assignment: cp Diagnosis - Calculus of ureter - Right cp - Intractable Pain cp Forms: - Medication Reconciliation Form cp - SBAR form cp Signatures: Dispatcher [employer] EDHemant Acosta PA PA cp Prokisch, Amanda RN RN ap3 Kathleen Resendiz RN RN ld1 Jo More, COLORECTAL SURGEON COLORECTAL SURGEON [id number]
[2022-11-11] MEDS ORDERED: LIDOCAINE 1% MPF 5 ML VIAL ONE (17:27)
[2022-11-11] MEDS ORDERED: propofoL 200 MG/20 ML VIAL IV ONE (17:27)
[2022-11-11] MEDS ORDERED: MEPERIDINE HCL 25 MG/ML SYR ONE (17:28)
[2022-11-11] MEDS ORDERED: dexAMETHasone 10 MG/ML VIAL ONE (17:28)
[2022-11-11] MEDS ORDERED: FENTANYL CITR 100 MCG/2 ML ONE (17:32)
[2022-11-11 17:38] LABS: SARS-CoV-2 Antigen Rapid Res Positive (Negative)
[2022-11-11] MEDS ORDERED: CEFAZOLIN SODIUM 1 GM/VIAL ONE (19:03)
[2022-11-11] MEDS ORDERED: HYDROCODONE/APAP 5/325 MG TAB PO PRN (20:25)
[2022-11-11] MEDS ORDERED: PHENAZOPYRIDINE 100MG TAB PO ONE ×2 (20:26→20:35)
[2022-11-11] MEDS ORDERED: HYDROCODONE/APAP 5/325 MG TAB ONE (20:33)
--- NOTE | 2022-11-11 20:39 | RAD REPORT ---
EXAM DESCRIPTION: RAD - Cystography - 11/11/2022 7:48 pm CLINICAL HISTORY: STENT COMPARISON: No comparisons FINDINGS/IMPRESSION: Six intraoperative fluoroscopic images were submitted showing cannulation of th e right ureter, injection of contrast, and placement of double-J ureteral stent. Fluoro time: 6 seconds Cumulative dose: 3.8 mGy
--- NOTE | 2022-11-11 21:28 | OP ---
Surgeon: AZUL OG Preoperative Diagnoses: 1. Right flank pain. 2. Right obstructive ureterolithiasis. 3. Unvaccinated COVID+ Postoperative Diagnoses: 1. Right flank pain. 2. Right obstructive ureterolithiasis. 3. Right hydroureteronephrosis. 4. Unvaccinated COVID+ Principal Procedure: 1. Cystoscopy with right retrograde pyelography. 2. Right ureteral stent placement. Indication For Procedure: Mr. Tolentino is a 46-year-old gentleman who presented via the emergency department today with intractable flank pain associated with the presence of a persistent obstructing right ureteral calculus, 3 mm. Despite attempts to control his pain, he required continuing higher levels of narcotics and other pain management. As a result, because of intractable pain, a right ureteral stent was recommended. Because he was incidentally found to be COVID+ despite being asymptomatic and because he is unvaccinated, extra precautions had to be taken including use of N95 masking and isolation negative-pressure room and post-op cleanup. Procedure In Detail: The patient was consented in the preoperative holding area before being transferred to the operative suite where general anesthesia was induced. He was given Ancef 2 g IV antimicrobial prophylaxis and pneumo boots were provided for DVT prophylaxis. He was placed in the lithotomy position, padded and secured to the table appropriately and his genitalia was prepped with Hibiclens before he was draped in standard fashion. The case was begun using a 22-Canadian rigid cystoscope to traverse the urethra and into the bladder with ease. The bladder was decompressed of fluid in urine and was surveyed for any mucosal lesion, foreign body, or stone. None were noted, and the ureteral orifices were orthotopic in location. I thus cannulated the right ureteral orifice, which was somewhat stenotic, using the tip of a Bentson guidewire and a 5-Canadian ureteral access catheter. A retrograde pyelogram was then performed. Right retrograde pyelography: Using a 70:30 mixture of Omnipaque and saline, contrast was injected via the 5- Canadian ureteral access catheter and did propagate in a delayed fashion up a dilated distal ureter into the mid and proximal ureter before entering a very dilated renal pelvis with pelvocaliectasis. As a result, I passed a Bentson guidewire via the 5-Canadian ureteral access catheter into the upper pole of the kidney as observed fluoroscopically and removed the 5-Canadian ureteral access catheter. Over the wire, I then passed a 6-Canadian x 24 cm double-J ureteral stent until a coil was observed fluoroscopically in the upper pole/renal pelvis and 1 cystoscopically was formed within the bladder. There was rapid decompression of the kidney with efflux of yellow urine, relieving the obstruction. I then decompressed his bladder of fluid and urine, and removed the cystoscope before taking him out of the lithotomy position. He was then awakened from general anesthesia, transferred to a stretcher, and then transferred to the recovery room in good condition. Complications: None. Discharge Disposition: He will require follow up for definitive management via ureteroscopy with laser lithotripsy and stone basketing/retrieval within the coming weeks. IVIS/DAVE Voice ID: [id number] Report ID: [id number]
[2022-11-11 21:31] VITALS: BP 116/71; TEMP 97.7; O2SAT 97
--- NOTE | 2022-11-13 11:10 | CON ---
Reason For Consultation: Right flank pain. History Of Present Illness: Mr. Tolentino is a 46-year-old gentleman who was seen by me as an outpatient , having been seen in the Emergency Department on 10/28/2022 with right flank pain associated with a distal 3 mm ureteral calculus. He was undergoing a trial of passage given the small size of the ston e and the 70% likelihood of successful spontaneous passage until he presented today to the Emergency Department with severe intractable flank pain that radiated into his right lower quadrant. He denied any associated fever or chills, but because of difficulty controlling his pain adequately, intervent ion became a necessity. Past Medical History: Noncontributory. Past Surgical History: None. Allergies: HE INDICATES AN ALLERGY TO ASPIRIN THAT IS NOT CONFIRMED. Physical Examination: General: He is alert, awake, oriented x3, in no acute distress as of the moment I visited with him t his evening. Respiratory: There was no dyspnea or sign of respiratory distress. Abdomen: Soft and nontender. There was right CVA tenderness. Data Reviewed: Review of prior anatomic imaging confirmed the presence of a distal right ureteral ca lculus approximately [address] from 10/28/2022. KUB obtained today revealed visible presence of a right distal ureteral calculus in similar position to that seen on CT. Ultrasound 11/11/2022 did not see evidence of hydronephrosis. Creatinine 1.15. Urinalysis with microscopic assessment without leukocyte esterase or nitrites, less than 5 WBCs per HPF, and only with 5-10 RBCs per HPF. Assessment And Recommendation: This 46-year-old gentleman without significant past medical history p resents with a 3 mm distal ureteral calculus with intractable flank, radiating into the right lower q uadrant, abdominal pain associated with the presence of a 3 mm distal right ureteral calculus. Given the intractability of his pain, at this point we recommend placement of a right ureteral stent to relieve the obstruction. He will subsequently be scheduled for definitive management via ureteros copy and laser lithotripsy if the stone is not visible and able to be delivered via a grasper today. I counseled the patient on the risks and the side effects of the procedure, explaining the risk of g ross hematuria; infection; urethral stricture; injury to the ureter, bladder, or surrounding structur es, and I explained the risk of severe stent discomfort. The side effects of the gross hematuria ass ociated with the stent and activity were also discussed. He will be scheduled accordingly for operative cystoscopy with right retrograde pyelography and right ureteral stent placement today. N.p.o. IV fluids. IV pain management. IVIS/DAVE Voice ID: [id number] Report ID: [id number]
== END 2022-11-11 21:11 | disposition home or self-care (01) ==
LOC: ER 11:55
DX: N20.1 Calculus of ureter (principal); N13.30 Unspecified hydronephrosis; U07.1 COVID-19; Z87.442 Personal history of urinary calculi
CPT/HCPCS: 96361; 85025; 36415; 83690; 80053; 74018; 51600; 74430; 76770; 96375; 96374; 99285; 87811; 52332; J2704; J2001; J3010; J1100; J1170; J7030 ×2; J2405 ×2; J0690; 81003; 81015; J2175

== ENCOUNTER → 2022-11-30 | Day surgery (SDC) | payer BC ==
[2022-11-26 09:43] LABS: Potassium 3.8 mmol/L (3.5-5.1)
[~2022-11-30] MED LIST: AMPICILLIN SODIUM 2 GM/VIAL VIAL ONE; FENTANYL CITR 100 MCG/2 ML ONE; Gentamicin Inj 160 MG in NA CHLORIDE 0.9% 100 ML IV SCH; HYDROCODONE/APAP 5/325 MG TAB PO PRN; LIDOCAINE 1% MPF 5 ML VIAL ONE; MIDAZOLAM HCL 2 MG/2 ML INJ ONE; Mastisol Adhesive Liq ONE; ONDANSETRON 4 MG/2 ML VIAL ONE; PHENAZOPYRIDINE 100MG TAB PO ONE; Ringers Lactate 1,000 ML IV ONE; propofoL 200 MG/20 ML VIAL IV ONE
--- NOTE | 2022-11-30 12:22 | OP ---
Surgeon: AZUL OG Preoperative Diagnoses: 1.Right ureterolithiasis, the size of the stone which is 4 mm. 2.Status post right ureteral stent placement. 3.Left nephrolithiasis, 3 mm. Postoperative Diagnoses: 1.Right ureterolithiasis, the size of the stone which is 4 mm. 2.Status post right ureteral stent placement. 3.Left nephrolithiasis, 3 mm. Principle Procedures: 1.Cystoscopy with right retrograde pyelography. 2.Right ureteroscopy with stone basketing and removal. 3.Right ureteral stent exchange. Indication For Procedure: Mr. Tolentino is a 47-year-old gentleman with a 4 mm distal ureteral calculus causing obstruction and significant pain resulting in need for stent placement. He presents today fo r definitive management of the stone. This is his second stone forming event. Procedure In Detail: The patient was consented in the preoperative holding area before being transfe rred to the operative suite, where general anesthesia was induced. He was given ampicillin 2 g and g entamicin 160 mg IV antimicrobial prophylaxis. Pneumo boots were provided for DVT prophylaxis. He w as placed in the lithotomy position, padded and secured to the table appropriately. His genitalia we re prepped with Hibiclens and he was draped in standard fashion. The case was begun using a 22-Frenc h rigid cystoscope to traverse the urethra and into the bladder with ease. The bladder was decompres sed of fluid and urine, and the stent was noted to emanate from the right ureteral orifice. It was g rasped using the alligator grasper and delivered via the meatus. The proximal end of the stent was l eft within the mid ureter as observed fluoroscopically. I was then able to pass a Sensor wire up the stent and coil it putatively within the upper pole of the kidney. Leaving the wire in place and rem oving the stent, I then performed direct vision semi-rigid ureteroscopy via the urethra and into the right ureter navigating into the mid ureter until the stone was encountered. Because the ureter was nicely dilated and the stone was relatively small in size, 4 mm, I was able to use a 1.9-Gibraltarian 0 tip Nitinol basket to grasp the stone and delivered out of the ureteral lumen intact. The stone was rem oumar and sent for chemical analysis. I then backloaded the cystoscope over the indwelling safety wir e and passed a 6-Gibraltarian x 24 cm double-J right ureteral stent which was left on its tether. To confi rm appropriate positioning of the stent and absence of injury to the ureter, I then also passed a 5-F rench ureteral access catheter into the ureteral orifice alongside the stent and injected contrast to perform a retrograde pyelogram. Right retrograde pyelography: Using a 70:30 mixture of Omnipaque and saline, contrast was injected v ia the lumen of the 5-Gibraltarian ureteral access catheter and did propagate up the ureter and filled the lower pole and eventually the mid and upper pole calices confirming the stent was coiled within the r enal pelvis. As a result, I removed the 5-Gibraltarian ureteral access catheter and decompressed his bladd er. I then removed the cystoscope and secured the tether of the stent to the penis using Mastisol an d Steri-Strips. The patient was then taken out of the lithotomy position, awakened from general anes thesia, transferred to a stretcher, and then transferred to the recovery room in good condition. Complications: None. Discharge Disposition: He should follow up in Urology Clinic on Tuesday for tethered ureteral stent r emoval. He may be given a dose of Macrobid antimicrobial prophylaxis at the time of the stent remova l. Subsequent followup should be established in about 2 months, and 1 month prior to followup, he sh ould do a Litholink metabolic stone forming profile assessment. This should be done with collection of 24 hour urine twice, as well as, blood work. IVIS/MODL Voice ID: [id number] Report ID: [id number]
[2022-11-30 13:44] VITALS: BP 100/63; TEMP 97; O2SAT 99
--- NOTE | 2022-11-30 14:50 | RAD REPORT ---
EXAM DESCRIPTION: RAD - Urethrocystogrphy Retrograde - 11/30/2022 2:07 pm CLINICAL HISTORY: RIGHT STENT PLACEMENT COMPARISON: Cystography dated 11/11/2022 FINDINGS/IMPRESSION: Five intraoperative fluoroscopic images were submitted showing a a right ureter al stent exchange . Fluoro time: 0.1 minutes Cumulative dose: 1.59 mGy
== END | disposition home or self-care (01) ==
LOC: OR 08:28
PROVIDERS: ATTEND Urology
PROC: 0T768DZ Dilation of Right Ureter with Intraluminal Device, Via Natural or Artificial Opening Endoscopic (ICD-10-PCS; 2022-11-30)
PROC: 0TC68ZZ Extirpation of Matter from Right Ureter, Via Natural or Artificial Opening Endoscopic (ICD-10-PCS; principal; 2022-11-30 08:30)
DX: N20.2 Calculus of kidney with calculus of ureter (principal); N13.30 Unspecified hydronephrosis
CPT/HCPCS: 87088; 87086; 80048; 36415; 88300; 82360; 74450; 51610; 52352; 52332; J2704; J2001; J1580; J2250; J3010; J7120; J2405; J0290